=== PATIENT | male | born 1955 | race Caucasian/White ===

== ENCOUNTER 2021-09-26 18:22 | Emergency (ER) | payer MEDICARE ==
[~2021-09-26] VITALS: Ht 180.3 cm; Wt 70.3 kg
[2021-09-26 20:38] LABS: HEMATOCRIT 46.2 % (39.0-50.0); HEMOGLOBIN 15.2 g/dl (14.0-18.0); IMMATURE GRANULOCYTES 0.3 % (0.0-5.0); MEAN CELL VOLUME 89.7 fL CALC (80.0-100.0); MEAN CORPUSCULAR HGB 29.5 pG CALC (26.0-32.0); MEAN CORPUSCULAR HGB CONC 32.9 g/dL CAL (32.0-36.0); NEUT# 12.34 thou/uL (1.82-7.42); RED BLOOD COUNT 5.15 mill/uL (4.70-6.10); RED CELL DISTRI WIDTH 13.1 % (11.5-15.5)
[2021-09-26 20:47] LABS: ALBUMIN 3.2 g/dL (3.2-5.0); BILIRUBIN, TOTAL 0.9 mg/dL (0.0-1.4); CREATININE 1.6 mg/dL (0.7-1.3); POTASSIUM 4.2 mmol/l (3.5-5.1); TOTAL PROTEIN 6.6 g/dL (6.3-8.2)
[2021-09-26 20:52] LABS: D-DIMER 3.88 mg/L (0.19-0.60)
[2021-09-26 20:55] LABS: ACT PARTIAL THROMBO TIME 23.2 SECONDS (20.0-32.5); INTERNATIONAL NORMALIZED RATIO 1.2 RATIO (0.7-1.3)
[2021-09-27 01:00] LABS: URINE BLOOD DIPSTICK LARGE (NEGATIVE); URINE COLOR YELLOW; URINE GLUCOSE - DIPSTICK NEGATIVE (NEGATIVE); URINE KETONE TRACE mg/dL (NEGATIVE); URINE LEUK ESTERASE NEGATIVE (NEGATIVE); URINE PROTEIN - DIPSTICK 100 mg/dL (NEG-TRACE); URINE SPECIFIC GRAVITY 1.025; URINE UROBILINOGEN - DIPSTICK 0.2 E.U./dL (0.2)
[2021-09-27 01:03] LABS: URINE BILIRUBIN - DIPSTICK SMALL (NEGATIVE)
[2021-09-27 01:04] LABS: URINE NITRITE - DIPSTICK NEGATIVE (Negative)
[2021-09-27] MEDS ORDERED: DOXYCYCL HYC100 MG PO (01:11)
[2021-09-27] MEDS ORDERED: VENTOLIN HFA IN (01:11)
[2021-09-27 01:12] LABS: URINE BACTERIA FEW hpf; URINE SQUAMOUS EPITHELIAL CELL FEW EPI/hpf (0-FEW)
[2021-09-27 01:15] VITALS: BP 115/72
== END 2021-09-27 01:15 | disposition left against medical advice (07) ==
LOC: ED 18:22
PROVIDERS: Family Medicine
DX: J18.9 Pneumonia, unspecified organism (principal); R79.89 Other specified abnormal findings of blood chemistry; Z91.19 Patient's noncompliance with other medical treatment and regimen; Z95.810 Presence of automatic (implantable) cardiac defibrillator; Z87.891 Personal history of nicotine dependence; Z20.822 Contact with and (suspected) exposure to COVID-19
CPT/HCPCS: Q9967

== ENCOUNTER 2021-12-12 16:01 | Emergency (ER) | payer MEDICARE ==
[~2021-12-12] VITALS: Ht 180.3 cm; Wt 65.0 kg
[~2021-12-12 16:01] MED LIST: DOXYCYCL HYC100 MG PO; VENTOLIN HFA IN
[2021-12-12 17:02] LABS: HEMATOCRIT 52.1 % (39.0-50.0); IMMATURE GRANULOCYTES 0.4 % (0.0-5.0); MEAN CORPUSCULAR HGB 26.4 pG CALC (26.0-32.0); MEAN CORPUSCULAR HGB CONC 30.7 g/dL CAL (32.0-36.0); NEUT# 2.73 thou/uL (1.82-7.42); RED BLOOD COUNT 6.06 mill/uL (4.70-6.10); RED CELL DISTRI WIDTH 17.8 % (11.5-15.5)
[2021-12-12 17:14] LABS: BILIRUBIN, TOTAL 1.1 mg/dL (0.0-1.4); CREATININE 1.8 mg/dL (0.7-1.3); TOTAL PROTEIN 6.5 g/dL (6.3-8.2)
[2021-12-12 17:18] LABS: POTASSIUM 5.4 mmol/l (3.5-5.1)
[2021-12-12 23:48] LABS: URINE BILIRUBIN - DIPSTICK NEGATIVE (NEGATIVE); URINE BLOOD DIPSTICK MODERATE (NEGATIVE); URINE COLOR YELLOW; URINE GLUCOSE - DIPSTICK NEGATIVE (NEGATIVE); URINE KETONE NEGATIVE (NEGATIVE); URINE PH 5.5 (4.5-8.0); URINE PROTEIN - DIPSTICK >=300 mg/dL (NEG-TRACE); URINE SPECIFIC GRAVITY 1.025; URINE UROBILINOGEN - DIPSTICK 0.2 E.U./dL (0.2)
[2021-12-12 23:57] LABS: URINE NITRITE - DIPSTICK NEGATIVE (Negative)
[2021-12-12 23:58] LABS: URINE LEUK ESTERASE NEGATIVE (NEGATIVE)
[2021-12-13 00:06] LABS: URINE BACTERIA MODERATE hpf; URINE EPITHELIAL CELLS MODERATE EPI/hpf (0-FEW)
[2021-12-13 00:07] LABS: URINE AMORPH SEDIMENT MANY hpf (NONE-FER)
[2021-12-13 02:30] VITALS: BP 91/66
== END 2021-12-13 02:41 ==
LOC: ED 16:01
PROVIDERS: Family Medicine
DX: U07.1 COVID-19 (principal); J12.82 Pneumonia due to coronavirus disease 2019; R79.89 Other specified abnormal findings of blood chemistry; J44.1 Chronic obstructive pulmonary disease with (acute) exacerbation; J44.0 Chronic obstructive pulmonary disease with (acute) lower respiratory infection; R09.02 Hypoxemia; S21.201A Unspecified open wound of right back wall of thorax without penetration into thoracic cavity, initial encounter; L08.9 Local infection of the skin and subcutaneous tissue, unspecified; I50.9 Heart failure, unspecified; F17.200 Nicotine dependence, unspecified, uncomplicated; X58.XXXA Exposure to other specified factors, initial encounter; Z95.810 Presence of automatic (implantable) cardiac defibrillator
CPT/HCPCS: J0282; Q9967